=== PATIENT | male | born 1935 | race Caucasian/White ===

== ENCOUNTER → 2017-05-06 | Outpatient (REF) | LOC: M LAB REF 12:37 | DX: C44.309 Unspecified malignant neoplasm of skin of other parts of face (principal) ==

== ENCOUNTER → 2021-12-29 | Outpatient (REF) | payer MEDICARE, OTHER ==
[~2021-12-29] MED LIST: ACET-897 PO; ALLO300T2 PO; D3 S1CAP3 PO; DILT240C82 PO; IBUP-1720 PO; LOTR10CA PO; METO100T5 PO; MICA40TA PO; POTA-151 PO; PRAV20TA2 PO; SYNT75TA PO; WARF4TAB51 PO
== END ==
LOC: M SFHCDERM 14:06
PROVIDERS: ATTEND Nurse Practitioner Family
DX: C44.329 Squamous cell carcinoma of skin of other parts of face (principal)

== ENCOUNTER → 2022-06-22 | Outpatient (CLI) | payer MEDICARE ==
[~2022-06-22] MED LIST changes: +AMLO1TAB24 PO; +CARD120C3 PO; +COLA100C5 PO; +FERR1TAB8 PO; +MIRA1POW3 PO; +PANT20TA6 PO; +TELM1TAB35 PO
== END ==
LOC: M ONCR 14:13
PROVIDERS: ATTEND General Practice
DX: C44.42 Squamous cell carcinoma of skin of scalp and neck (principal); K08.9 Disorder of teeth and supporting structures, unspecified; E03.9 Hypothyroidism, unspecified; E78.5 Hyperlipidemia, unspecified; I48.0 Paroxysmal atrial fibrillation; K21.9 Gastro-esophageal reflux disease without esophagitis; Z72.89 Other problems related to lifestyle; Z79.890 Hormone replacement therapy; Z79.899 Other long term (current) drug therapy; Z80.0 Family history of malignant neoplasm of digestive organs; Z87.891 Personal history of nicotine dependence